=== PATIENT | male | born 1960 | race Two or more races ===

== ENCOUNTER 2016-12-31 00:43 | Emergency (ER) | payer MEDICAID | END 2016-12-31 03:09 | disposition home or self-care (01) | DX: J01.90 Acute sinusitis, unspecified (principal); E11.65 Type 2 diabetes mellitus with hyperglycemia; Z79.4 Long term (current) use of insulin; F17.200 Nicotine dependence, unspecified, uncomplicated; Z79.82 Long term (current) use of aspirin ==

== ENCOUNTER 2017-06-13 10:58 | Outpatient (CLI) | payer MEDICAID ==
[2017-06-13 19:28] LABS: BASOPHILS % (AUTO) 0.1 %; HCT - HEMATOCRIT 48.2 % (42.0-52.0); HGB - HEMOGLOBIN 16.4 g/dL (14.0-18.0); LYMPHOCYTES % (AUTO) 3.3 %; MEAN CORPUSCULAR HEMOGLOBIN 33.4 pg (27.0-31.0); MEAN CORPUSCULAR HGB CONC 34.1 g/dL (32.0-36.0); MEAN PLATELET VOLUME 11.2 fL (7.4-11.4); NEUTROPHILS % (AUTO) 41.6 %; RED BLOOD COUNT 4.91 10^6/uL (4.70-6.10); RED CELL DISTRIBUTION WIDTH 13.6 % (12.0-15.0); UNCORRECTED WHITE BLOOD COUNT 9.9 x10^3/uL; WHITE BLOOD COUNT 9.9 x10^3/uL (4.8-10.8)
[2017-06-13 19:37] LABS: BAND NEUTROPHILS % (MANUAL) 0 %
[2017-06-13 20:01] LABS: BASOPHILS % (MANUAL) 1 %; EOSINOPHILS % (MANUAL) 1 %; LYMPHOCYTES % (MANUAL) 23 %; NEUTROPHILS % (MANUAL) 67 %; NP AUTO DIFFERENTIAL? YES; NP MAN DIFFERENTIAL? NO; PLATELET ESTIMATE, MANUAL DECREASED (<130,000) (NORMAL); PLATELET MORPHOLOGY NORMAL APPEARANCE (NORMAL); TOTAL CELLS COUNTED 100
[2017-06-13 20:27] LABS: ALBUMIN/GLOBULIN RATIO 1.4 (1.0-2.2); BUN - BLOOD UREA NITROGEN 13 mg/dL (6-20); CALCIUM 9.6 mg/dL (8.5-10.3); CARBON DIOXIDE - CO2 26 mmol/L (21-32); CHLORIDE 101 mmol/L (101-111); CREATININE 0.9 mg/dL (0.6-1.2); GFR - MDRD 87 (>89); GLUCOSE 298 mg/dL (70-100); POTASSIUM 4.4 mmol/L (3.5-5.0); SODIUM 136 mmol/L (135-145); TOTAL PROTEIN 7.1 g/dL (6.7-8.2)
== END 2017-06-13 10:59 | disposition home or self-care (01) ==
LOC: LAB.N 10:58
PROVIDERS: ATTEND Specialist/Technologist Athletic Trainer
DX: L40.50 Arthropathic psoriasis, unspecified (principal); Z91.89 Other specified personal risk factors, not elsewhere classified; L40.9 Psoriasis, unspecified; M79.7 Fibromyalgia; E11.65 Type 2 diabetes mellitus with hyperglycemia; R20.2 Paresthesia of skin
CPT/HCPCS: 36415; 80053; 85025; 85651; 86140

== ENCOUNTER 2017-06-21 08:00 | Outpatient (CLI) | payer MEDICAID | END 2017-06-21 08:01 | disposition home or self-care (01) | LOC: LAB.N 08:00 | PROVIDERS: ATTEND Physician Assistant | DX: N52.9 Male erectile dysfunction, unspecified (principal) | CPT/HCPCS: 36415; 84403 ==

== ENCOUNTER 2017-07-14 09:04 | Outpatient (CLI) | payer MEDICAID ==
--- NOTE | 2017-07-14 12:38 | XRAY Report ---
FOUR-VIEW RIGHT SHOULDER: 07/14/2017 CLINICAL INDICATION: Psoriatic arthritis. FINDINGS: Internal and external rotational views, oblique view, scapular Y view of the right shoulde r were obtained. There are mild degenerative changes of the glenohumeral and acromioclavicular joint s. There is no evidence of acute fracture or dislocation. No radiopaque foreign body is seen in the soft tissues. IMPRESSION: MILD DEGENERATIVE CHANGES. JOB #: [id number] EXT JOB #:[id number]
== END 2017-07-14 09:05 | disposition home or self-care (01) ==
LOC: DI.N 09:04
PROVIDERS: ATTEND Specialist/Technologist Athletic Trainer
DX: M19.011 Primary osteoarthritis, right shoulder (principal)

== ENCOUNTER 2017-07-27 08:00 | Outpatient (CLI) | payer MEDICAID ==
[2017-07-27 19:37] LABS: HEMOGLOBIN A1C 1.63 g/dL
[2017-07-27 19:43] LABS: ALBUMIN/GLOBULIN RATIO 1.7 (1.0-2.2); BILIRUBIN,TOTAL 1.2 mg/dL (0.2-1.0); BUN - BLOOD UREA NITROGEN 13 mg/dL (6-20); CARBON DIOXIDE - CO2 28 mmol/L (21-32); CHLORIDE 103 mmol/L (101-111); CHOL/HDL RATIO 7.1 (<5.0); CHOLESTEROL 268 mg/dL; CREATININE 0.9 mg/dL (0.6-1.2); GFR - MDRD 87 (>89); GLUCOSE 298 mg/dL (70-100); HDL CHOLESTEROL 38 mg/dL; LDL/HDL RATIO 4.5 (<3.6); POTASSIUM 4.5 mmol/L (3.5-5.0); SODIUM 139 mmol/L (135-145); TOTAL PROTEIN 7.5 g/dL (6.7-8.2); TRIGLYCERIDES 297 mg/dL; VLDL CHOLESTEROL 59 mg/dL
== END 2017-07-27 08:01 | disposition home or self-care (01) ==
LOC: LAB.N 08:00
PROVIDERS: ATTEND Family Medicine
DX: Z79.4 Long term (current) use of insulin (principal); E11.65 Type 2 diabetes mellitus with hyperglycemia; R07.9 Chest pain, unspecified; E78.5 Hyperlipidemia, unspecified
CPT/HCPCS: 36415; 80053; 80061; 82043; 83036; 84443

== ENCOUNTER 2018-01-12 08:00 | Outpatient (CLI) | payer MEDICAID ==
[2018-01-12 18:40] LABS: BASOPHILS # (AUTO) 0.1 10^3/uL (0.0-0.1); EOSINOPHILS # (AUTO) 0.3 10^3/uL (0.0-0.7); EOSINOPHILS % (AUTO) 3.5 %; HGB - HEMOGLOBIN 16.4 g/dL (14.0-18.0); LYMPHOCYTES # (AUTO) 2.6 10^3/uL (1.5-3.5); LYMPHOCYTES % (AUTO) 28.6 %; MEAN CORPUSCULAR HGB CONC 33.4 g/dL (32.0-36.0); MEAN CORPUSCULAR VOLUME 95.7 fL (80.0-94.0); MEAN PLATELET VOLUME 10.6 fL (7.4-11.4); MONOCYTES # (AUTO) 0.8 10^3/uL (0.0-1.0); MONOCYTES % (AUTO) 8.5 %; NEUTROPHILS # (AUTO) 5.3 10^3/uL (1.5-6.6); NEUTROPHILS % (AUTO) 58.4 %; PLT - PLATELET COUNT 156 10^3/uL (130-450); RED BLOOD COUNT 5.13 10^6/uL (4.70-6.10); RED CELL DISTRIBUTION WIDTH 13.4 % (12.0-15.0); WHITE BLOOD COUNT 9.1 x10^3/uL (4.8-10.8)
[2018-01-12 19:01] LABS: ALBUMIN 4.5 g/dL (3.2-5.5); ALBUMIN/GLOBULIN RATIO 1.6 (1.0-2.2); ALKALINE PHOSPHATASE 108 IU/L (42-121); ALT ALANINE AMINOTRANSFERASE 16 IU/L (10-60); AST ASPARTATE AMINOTRANSFERASE 15 IU/L (10-42); BILIRUBIN,TOTAL 0.5 mg/dL (0.2-1.0); BUN - BLOOD UREA NITROGEN 13 mg/dL (6-20); CALCIUM 9.4 mg/dL (8.5-10.3); CARBON DIOXIDE - CO2 26 mmol/L (21-32); CHLORIDE 100 mmol/L (101-111); CREATININE 0.8 mg/dL (0.6-1.2); GFR - MDRD 99 (>89); GLUCOSE 370 mg/dL (70-100); SODIUM 135 mmol/L (135-145); TOTAL PROTEIN 7.3 g/dL (6.7-8.2)
[2018-01-12 19:35] LABS: CRP - C-REACTIVE PROTEIN < 1.0 mg/dL (0-1.0)
== END 2018-01-12 23:59 | disposition home or self-care (01) ==
LOC: LAB.N 08:00
PROVIDERS: ATTEND Specialist/Technologist Athletic Trainer
DX: L40.50 Arthropathic psoriasis, unspecified (principal)
CPT/HCPCS: 36415; 80053; 85025; 85651; 86140

== ENCOUNTER 2018-01-12 13:41 | Outpatient (CLI) | payer MEDICAID ==
--- NOTE | 2018-01-12 18:30 | XRAY Report ---
THREE VIEW SINUSES: 01/12/2018 CLINICAL INDICATION: Chronic sinusitis. FINDINGS: AP, [place], lateral views of the paranasal sinuses are compared to images of the sinuses on head CT of 12/31/2016. There is an air fluid level in the left maxillary sinus, similar to previous. Patchy ethmoid opacification is present. The frontal sinuses and sphenoid sinus appear unremarkable. The nasal septum is midline. IMPRESSION: ACUTE ON CHRONIC SINUS DISEASE, SIMILAR TO PREVIOUS CT. TD: 01/12/2018 18:29
== END 2018-01-12 13:42 | disposition home or self-care (01) ==
LOC: DI.N 13:41
PROVIDERS: ATTEND Physician Assistant Medical
DX: J01.90 Acute sinusitis, unspecified (principal); J32.9 Chronic sinusitis, unspecified; L40.50 Arthropathic psoriasis, unspecified
CPT/HCPCS: 36415; 70220; 80053; 85025; 85651; 86140

== ENCOUNTER 2018-04-04 08:00 | Outpatient (CLI) | payer MEDICAID ==
[2018-04-04 13:34] LABS: BASOPHILS # (AUTO) 0.1 10^3/uL (0.0-0.1); BASOPHILS % (AUTO) 0.7 %; EOSINOPHILS # (AUTO) 0.2 10^3/uL (0.0-0.7); EOSINOPHILS % (AUTO) 2.1 %; HGB - HEMOGLOBIN 15.8 g/dL (14.0-18.0); LYMPHOCYTES # (AUTO) 2.4 10^3/uL (1.5-3.5); LYMPHOCYTES % (AUTO) 21.9 %; MEAN CORPUSCULAR HEMOGLOBIN 33.1 pg (27.0-31.0); MEAN CORPUSCULAR HGB CONC 35.3 g/dL (32.0-36.0); MEAN CORPUSCULAR VOLUME 93.8 fL (80.0-94.0); MEAN PLATELET VOLUME 10.8 fL (7.4-11.4); MONOCYTES # (AUTO) 0.8 10^3/uL (0.0-1.0); MONOCYTES % (AUTO) 7.6 %; NEUTROPHILS # (AUTO) 7.4 10^3/uL (1.5-6.6); NEUTROPHILS % (AUTO) 67.7 %; PLT - PLATELET COUNT 136 10^3/uL (130-450); RED BLOOD COUNT 4.78 10^6/uL (4.70-6.10); RED CELL DISTRIBUTION WIDTH 13.2 % (12.0-15.0)
[2018-04-04 13:50] LABS: HB2 TOTAL 17.8 g/dL; HEMOGLOBIN A1C 1.4 g/dL; HEMOGLOBIN A1C % 9.3 % (4.6-6.2)
[2018-04-04 13:56] LABS: ALBUMIN 4.1 g/dL (3.2-5.5); ALBUMIN/GLOBULIN RATIO 1.4 (1.0-2.2); ALKALINE PHOSPHATASE 99 IU/L (42-121); ALT ALANINE AMINOTRANSFERASE 18 IU/L (10-60); AST ASPARTATE AMINOTRANSFERASE 16 IU/L (10-42); BILIRUBIN,TOTAL 0.9 mg/dL (0.2-1.0); BUN - BLOOD UREA NITROGEN 16 mg/dL (6-20); CALCIUM 9.1 mg/dL (8.5-10.3); CARBON DIOXIDE - CO2 24 mmol/L (21-32); CHLORIDE 101 mmol/L (101-111); CHOLESTEROL 297 mg/dL; CREATININE 0.7 mg/dL (0.6-1.2); GFR - MDRD 116 (>89); GLUCOSE 350 mg/dL (70-100); HDL CHOLESTEROL 33 mg/dL; SODIUM 133 mmol/L (135-145); TOTAL PROTEIN 7.1 g/dL (6.7-8.2)
[2018-04-04 14:18] LABS: LDL CHOLESTEROL,DIRECT 146 mg/dL; LDLD/HDL RATIO 4.4 (<3.6)
== END 2018-04-04 08:01 | disposition home or self-care (01) ==
LOC: LAB.N 08:00
PROVIDERS: ATTEND Nurse Practitioner
DX: E11.65 Type 2 diabetes mellitus with hyperglycemia (principal); Z79.4 Long term (current) use of insulin; E78.2 Mixed hyperlipidemia; E55.9 Vitamin D deficiency, unspecified; Z12.5 Encounter for screening for malignant neoplasm of prostate
CPT/HCPCS: 36415; 80053; 80061; 82043; 82306; 83036; 83721; 84153; 84443; 85025

== ENCOUNTER 2018-04-04 08:00 | Outpatient (CLI) | payer MEDICAID | END 2018-04-04 08:01 | disposition home or self-care (01) | LOC: LAB.R 08:00 | PROVIDERS: ATTEND Nurse Practitioner | DX: E11.65 Type 2 diabetes mellitus with hyperglycemia (principal); Z79.4 Long term (current) use of insulin; E78.2 Mixed hyperlipidemia | CPT/HCPCS: 82043 ==

== ENCOUNTER 2018-11-24 08:00 | Outpatient (CLI) | payer MEDICAID | END 2018-11-24 23:59 | disposition home or self-care (01) | LOC: LAB.R 08:00 | PROVIDERS: ATTEND Nurse Practitioner | DX: R19.4 Change in bowel habit (principal) | CPT/HCPCS: 82274 ==

== ENCOUNTER 2019-03-27 08:00 | Outpatient (CLI) | payer MEDICAID ==
[2019-03-27 19:02] LABS: BASOPHILS # (AUTO) 0.1 10^3/uL (0.0-0.1); BASOPHILS % (AUTO) 0.9 %; EOSINOPHILS # (AUTO) 0.3 10^3/uL (0.0-0.7); EOSINOPHILS % (AUTO) 2.6 %; HGB - HEMOGLOBIN 16.8 g/dL (14.0-18.0); LYMPHOCYTES # (AUTO) 2.2 10^3/uL (1.5-3.5); LYMPHOCYTES % (AUTO) 20.6 %; MEAN CORPUSCULAR HEMOGLOBIN 32.1 pg (27.0-31.0); MEAN CORPUSCULAR HGB CONC 33.5 g/dL (32.0-36.0); MEAN CORPUSCULAR VOLUME 95.7 fL (80.0-94.0); MEAN PLATELET VOLUME 10.9 fL (7.4-11.4); MONOCYTES # (AUTO) 0.9 10^3/uL (0.0-1.0); MONOCYTES % (AUTO) 8.6 %; NEUTROPHILS # (AUTO) 7.1 10^3/uL (1.5-6.6); NEUTROPHILS % (AUTO) 67.3 %; PLT - PLATELET COUNT 158 10^3/uL (130-450); RED BLOOD COUNT 5.22 10^6/uL (4.70-6.10); RED CELL DISTRIBUTION WIDTH 13.5 % (12.0-15.0); WHITE BLOOD COUNT 10.6 x10^3/uL (4.8-10.8)
[2019-03-27 19:16] LABS: ALBUMIN 4.2 g/dL (3.2-5.5); ALBUMIN/GLOBULIN RATIO 1.4 (1.0-2.2); ALKALINE PHOSPHATASE 109 IU/L (42-121); ALT ALANINE AMINOTRANSFERASE 13 IU/L (10-60); AST ASPARTATE AMINOTRANSFERASE 12 IU/L (10-42); BUN - BLOOD UREA NITROGEN 16 mg/dL (6-20); CALCIUM 9.7 mg/dL (8.5-10.3); CARBON DIOXIDE - CO2 28 mmol/L (21-32); CHLORIDE 100 mmol/L (101-111); CHOL/HDL RATIO 8.7 (<5.0); CHOLESTEROL 288 mg/dL; CREATININE 0.9 mg/dL (0.6-1.2); GFR - MDRD 86 (>89); GLUCOSE 282 mg/dL (70-100); HDL CHOLESTEROL 33 mg/dL; LDL CHOLESTEROL,CALCULATED 182 mg/dL; LDL/HDL RATIO 5.5 (<3.6); SODIUM 138 mmol/L (135-145); TOTAL PROTEIN 7.2 g/dL (6.7-8.2); VLDL CHOLESTEROL 73 mg/dL
[2019-03-27 19:31] LABS: PSA FREE 0.226 ng/mL (0.16-2.81)
[2019-03-27 19:33] LABS: PSA TOTAL 0.902 ng/mL (0.000-2.000)
[2019-03-27 19:38] LABS: HB2 TOTAL 18.6 g/dL; HEMOGLOBIN A1C 1.63 g/dL; HEMOGLOBIN A1C % 10.2 % (4.6-6.2)
== END 2019-03-27 23:59 | disposition home or self-care (01) ==
LOC: LAB.N 08:00
PROVIDERS: ATTEND Nurse Practitioner Gerontology
DX: N40.0 Benign prostatic hyperplasia without lower urinary tract symptoms (principal); E11.40 Type 2 diabetes mellitus with diabetic neuropathy, unspecified; E11.65 Type 2 diabetes mellitus with hyperglycemia
CPT/HCPCS: 36415; 80053; 80061; 82043; 83036; 83721; 84153; 84154; 84443; 85025

== ENCOUNTER 2019-05-23 08:00 | Outpatient (CLI) | payer MEDICAID ==
[2019-05-23 19:03] LABS: BASOPHILS # (AUTO) 0.1 10^3/uL (0.0-0.1); BASOPHILS % (AUTO) 1.1 %; EOSINOPHILS # (AUTO) 0.2 10^3/uL (0.0-0.7); HGB - HEMOGLOBIN 16.8 g/dL (14.0-18.0); LYMPHOCYTES # (AUTO) 2.4 10^3/uL (1.5-3.5); LYMPHOCYTES % (AUTO) 28.1 %; MEAN CORPUSCULAR HEMOGLOBIN 31.6 pg (27.0-31.0); MEAN CORPUSCULAR HGB CONC 33.5 g/dL (32.0-36.0); MEAN CORPUSCULAR VOLUME 94.4 fL (80.0-94.0); MEAN PLATELET VOLUME 11.7 fL (7.4-11.4); MONOCYTES # (AUTO) 0.4 10^3/uL (0.0-1.0); MONOCYTES % (AUTO) 4.9 %; NEUTROPHILS # (AUTO) 5.3 10^3/uL (1.5-6.6); NEUTROPHILS % (AUTO) 63.3 %; PLT - PLATELET COUNT 187 10^3/uL (130-450); RED BLOOD COUNT 5.31 10^6/uL (4.70-6.10); RED CELL DISTRIBUTION WIDTH 12.9 % (12.0-15.0); WHITE BLOOD COUNT 8.4 x10^3/uL (4.8-10.8)
[2019-05-23 19:40] LABS: ALBUMIN 4.1 g/dL (3.2-5.5); ALBUMIN/GLOBULIN RATIO 1.3 (1.0-2.2); ALKALINE PHOSPHATASE 92 IU/L (42-121); ALT ALANINE AMINOTRANSFERASE 17 IU/L (10-60); AST ASPARTATE AMINOTRANSFERASE 13 IU/L (10-42); BUN - BLOOD UREA NITROGEN 12 mg/dL (6-20); CALCIUM 9.4 mg/dL (8.5-10.3); CARBON DIOXIDE - CO2 27 mmol/L (21-32); CHLORIDE 102 mmol/L (101-111); CREATININE 0.8 mg/dL (0.6-1.2); GFR - MDRD 99 (>89); GLUCOSE 220 mg/dL (70-100); SODIUM 140 mmol/L (135-145); TOTAL PROTEIN 7.3 g/dL (6.7-8.2)
[2019-05-23 19:41] LABS: CRP - C-REACTIVE PROTEIN < 1.0 mg/dL (0-1.0)
== END 2019-05-23 23:59 | disposition home or self-care (01) ==
LOC: LAB.N 08:00
PROVIDERS: ATTEND Physician Assistant Medical
DX: L40.50 Arthropathic psoriasis, unspecified (principal)
CPT/HCPCS: 36415; 80053; 85025; 85651; 86140

== ENCOUNTER 2019-07-20 09:00 | Emergency (ER) | payer MEDICAID ==
[2019-07-20] MEDS ORDERED: LIDOCAINE VISCOUS 2% 15 ML UDC MM STA (09:17)
[2019-07-20] MEDS ORDERED: MAG HYDROX/AL HYDROX/SIMETH 30 ML UDC PO STA (09:17)
--- NOTE | 2019-07-20 09:17 | ED Physician Documentation ---
PD HPI CHEST PAIN - Stated complaint Stated Complaint: CHEST PX - Chief complaint Chief Complaint: Cardiac - History obtained from History obtained from: Patient - History of Present Illness Timing - onset: How many days ago (3) Timing - duration: Days (3) Timing - details: Still present Pain level now: 7 Quality: Pain Location: Substernal Worsened by: Inspiration Associated symptoms: No: Shortness of air, Diaphoresis, Nausea, Vomiting - Treatment prior to arrival Treatment prior to arrival: 4 baby aspirin - Additional information Additional information: The patient is a 58-year-old insulin-dependent diabetic male who presents with substernal chest pain that started 3 days ago and has continued steadily since then. He rates it at 7 out of 10 in severity, and reports that it is worse with inspiration, with swallowing, or with movement. He denies associated nausea, vomiting, shortness of breath, or diaphoresis. He has taken aspirin without relief. He reports productive cough, but denies fever. He reports history of similar pain 3 years ago and had negative cardiac work-up at that time. In addition to insulin dependent diabetes he smokes cigarettes. Review of Systems Constitutional: denies: Fever Ears: denies: Tinnitus/ringing Nose: denies: Congestion Throat: denies: Sore throat Cardiac: reports: Chest pain / pressure. denies: Palpitations Respiratory: reports: Cough. denies: Dyspnea GI: denies: Abdominal Pain, Nausea, Vomiting : denies: Dysuria Skin: denies: Rash Musculoskeletal: reports: Back pain (chronically). denies: Extremity swelling Neurologic: denies: Focal weakness, Numbness, Headache PD PAST MEDICAL HISTORY - Past Medical History Endocrine/Autoimmune: Type 2 diabetes, Other GI: GERD Psych: Anxiety Musculoskeletal: Osteoarthritis, Chronic back pain Derm: Psoriasis - Past Surgical History Past Surgical History: Yes - Present Medications Home Medications: Ambulatory Orders Medication Instructions Recorded Confirmed Gabapentin 100 mg PO TID 09/09/16 12/31/16 Insulin Detemir [Levemir] 25 unit SUBQ QPM 09/09/16 12/31/16 Insulin Lispro [Humalog Kwikpen 5 units SUBQ TIDWM 09/09/16 12/31/16 U-100] Methotrexate 15 mg PO Q7D 09/09/16 12/31/16 Aspirin [Aspir-Low] 81 mg PO DAILYWM #30 tablet. 09/10/16 12/31/16 metFORMIN [Glucophage] 1,000 mg PO BIDWM #60 tablet 09/10/16 12/31/16 Secukinumab [Cosentyx Pen] mg SQ 07/20/19 - Allergies Allergies/Adverse Reactions: Allergies Allergy/AdvReac Type Severity Reaction Status Date / Time No Known Drug Allergies Allergy Verified 07/20/19 09:06 - Social History Does the pt smoke?: Yes Smoking Status: Current every day smoker Does the pt drink ETOH?: No Does the pt have substance abuse?: No - Immunizations Immunizations are current?: No Immunizations: TDAP >10years/unknown - POLST Patient has POLST: No PD ED PE NORMAL - Vitals Vital signs reviewed: Yes (hypertensive) - General General: Alert and oriented X 3, Well developed/nourished - HEENT HEENT: Atraumatic, Pharynx benign - Neck Neck: No adenopathy, No JVD - Cardiac Cardiac: RRR - Respiratory Respiratory: No respiratory distress, Clear bilaterally - Abdomen Abdomen: Soft, Non tender - Back Back: No CVA TTP - Derm Derm: No rash - Extremities Extremities: No edema, No calf tenderness / cord - Neuro Neuro: Alert and oriented X 3, No motor deficit, Normal speech Results - Vitals Vitals: Vital Signs - 24 hr 07/20/19 07/20/19 07/20/19 09:04 09:33 09:46 Temperature 36.4 C L Heart Rate 104 H 102 H 104 H Respiratory 18 20 14 Rate Blood Pressure 143/100 H 112/85 H 87/72 L O2 Saturation 97 96 94 Oxygen O2 Source Room air - EKG (time done) 09:05 Rate: Rate (enter#) (101) Rhythm: Sinus tachycardia Moffit: Anterior hemiblock Intervals: Normal LA Ischemia: ST elevation c/w ischemia (in precordial leads V1 and V2, with TWI in aVL.), T wave inversion (in aVL.) Compare to prior EKG: Changed from prior EKG (ST elevation and TWI are new since prior tracing of 09/09/2016.) Computer interpretation: Agree with computer - Labs Labs: Laboratory Tests 07/20/19 07/20/19 07/20/19 09:18 09:18 09:18 WBC 15.7 H RBC 5.29 Hgb 17.0 Hct 48.4 MCV 91.5 MCH 32.1 H MCHC 35.1 RDW 12.3 Plt Count 170 MPV 11.2 Neut # (Auto) 11.9 H Lymph # (Auto) 2.0 Jennings # (Auto) 1.5 H Eos # (Auto) 0.2 Baso # (Auto) 0.1 Absolute Nucleated RBC 0.00 Nucleated RBC % 0.0 Sodium 138 Potassium 4.1 Chloride 100 L Carbon Dioxide 27 Anion Gap 11.0 BUN 12 Creatinine 0.9 Estimated GFR (MDRD) 86 L Glucose 212 H Calcium 9.3 Total Bilirubin 1.3 H AST 19 ALT 17 Alkaline Phosphatase 102 Troponin I High Sens 1382.0 H* Total Protein 7.6 Albumin 4.1 Globulin 3.5 Albumin/Globulin Ratio 1.2 Lipase 21 L - Rads (name of study) 1-view CXR Radiology: Prelim report reviewed, EMP read contemporaneously, See rad report (Low lung volumes, otherwise normal portable chest.) PD MEDICAL DECISION MAKING - ED course Complexity details: reviewed old records, reviewed results, re-evaluated patient, considered differential, d/w patient, d/w tax credit leasing consultant ED course: The patient's presentation is significant for ST elevation ND, with ST elevations in precordial leads V1 and V2, with T wave inversion in aVL, and an elevated high-sensitivity troponin of 1382. When compared to prior EKG from September 2016, the ST elevation and T wave inversion are new. Treatment in the emergency department included administration of nitroglycerin sublingually. With one sublingual nitroglycerin his blood pressure dropped to 86 systolic. Normal saline 250 mL was administered IV, and his subsequent blood pressure was 119/74. Morphine 4 mg was administered IV, and heparin bolus and infusion was administered. I discussed his condition with Dr. Peacock at [facility], and he accepts the patient in transfer. Transfer forms were completed. Departure - Departure Disposition: 02 Transfer Acute Care Hosp Clinical Impression: IDDM (insulin dependent diabetes mellitus) STEMI (ST elevation myocardial infarction) Qualifiers: Involved coronary artery: unspecified coronary artery Qualified Code(s): I21.3 - ST elevation (STEMI) myocardial infarction of unspecified site Condition: Fair
[2019-07-20 09:23] LABS: BASOPHILS # (AUTO) 0.1 10^3/uL (0.0-0.1); BASOPHILS % (AUTO) 0.6 %; EOSINOPHILS # (AUTO) 0.2 10^3/uL (0.0-0.7); LYMPHOCYTES % (AUTO) 12.6 %; MEAN CORPUSCULAR HEMOGLOBIN 32.1 pg (27.0-31.0); MEAN CORPUSCULAR HGB CONC 35.1 g/dL (32.0-36.0); MEAN CORPUSCULAR VOLUME 91.5 fL (80.0-94.0); MEAN PLATELET VOLUME 11.2 fL (7.4-11.4); MONOCYTES # (AUTO) 1.5 10^3/uL (0.0-1.0); MONOCYTES % (AUTO) 9.3 %; NEUTROPHILS # (AUTO) 11.9 10^3/uL (1.5-6.6); NEUTROPHILS % (AUTO) 75.9 %; PLT - PLATELET COUNT 170 10^3/uL (130-450); RED BLOOD COUNT 5.29 10^6/uL (4.70-6.10); RED CELL DISTRIBUTION WIDTH 12.3 % (12.0-15.0); WHITE BLOOD COUNT 15.7 x10^3/uL (4.8-10.8)
[2019-07-20] MEDS ORDERED: NITROGLYCERIN SL 0.4 MG TABLET SL STA (09:28)
[2019-07-20 09:32] LABS: ALBUMIN 4.1 g/dL (3.2-5.5); ALBUMIN/GLOBULIN RATIO 1.2 (1.0-2.2); BILIRUBIN,TOTAL 1.3 mg/dL (0.2-1.0); CALCIUM 9.3 mg/dL (8.5-10.3); CREATININE 0.9 mg/dL (0.6-1.2); TOTAL PROTEIN 7.6 g/dL (6.7-8.2)
--- NOTE | 2019-07-20 09:41 | XRAY Report ---
Reason: chest pain Procedure Date: 07/20/2019 Accession Number: [id number] / [id number] Procedure: XR - Chest 1 View X-Ray CPT Code: 61777 FULL RESULT: EXAM: CHEST RADIOGRAPHY EXAM DATE: 07/20/2019 09:28 AM. CLINICAL HISTORY: Chest pain. COMPARISON: SHOULDER 3 VIEW RT 07/14/2017 9:20 AM. TECHNIQUE: 1 view. FINDINGS: Lungs/Pleura: Low lung volumes. No effusions or pneumothoraces. No consolidations or nodules. Mediastinum: Within exam limitations, the cardiomediastinal contour is normal. Other: None. IMPRESSION: Low lung volumes otherwise normal portable chest. RADIA
[2019-07-20] MEDS ORDERED: SODIUM CHLORIDE 0.9% 250 ML IV ONE (09:43)
[2019-07-20] MEDS ORDERED: MORPHINE 2 MG/ML CARPUJECT IVP STA (09:48)
[2019-07-20] MEDS ORDERED: HEPARIN 25000UNITS/500ML (D5W) 25,000 UNIT/500 ML BAG IV STA (09:48)
[2019-07-20] MEDS ORDERED: HEPARIN 5,000 UNIT/ML VIAL ONE (10:06)
[2019-07-20 10:09] VITALS: BP 120/78
== END 2019-07-20 10:20 | disposition short-term general hospital (02) ==
LOC: ED 09:00
DX: I21.3 ST elevation (STEMI) myocardial infarction of unspecified site (principal); I44.4 Left anterior fascicular block; F17.210 Nicotine dependence, cigarettes, uncomplicated; E11.9 Type 2 diabetes mellitus without complications; Z79.4 Long term (current) use of insulin; Z79.82 Long term (current) use of aspirin
CPT/HCPCS: 36415; 71045; 80053; 83690; 84484; 85025; 93005; 96365; 96375; 99285; A9270

== ENCOUNTER 2019-07-20 10:18 | Outpatient (CLI) | payer MEDICAID | END 2019-07-20 10:19 | disposition short-term general hospital (02) | LOC: EMS 10:18 | PROVIDERS: ATTEND Surgery | DX: I21.3 ST elevation (STEMI) myocardial infarction of unspecified site (principal) | CPT/HCPCS: A0425; A0426; A0999 ==

== ENCOUNTER 2020-12-04 15:56 | Outpatient (CLI) | payer MEDICAID ==
[2020-12-04 17:59] LABS: BASOPHILS # (AUTO) 0.1 10^3/uL (0.0-0.1); BASOPHILS % (AUTO) 0.7 %; EOSINOPHILS # (AUTO) 0.4 10^3/uL (0.0-0.7); EOSINOPHILS % (AUTO) 3.2 %; LYMPHOCYTES # (AUTO) 3.2 10^3/uL (1.5-3.5); LYMPHOCYTES % (AUTO) 29.4 %; MEAN CORPUSCULAR HEMOGLOBIN 32.1 pg (27.0-31.0); MEAN CORPUSCULAR HGB CONC 34.2 g/dL (32.0-36.0); MEAN PLATELET VOLUME 10.8 fL (7.4-11.4); MONOCYTES # (AUTO) 0.9 10^3/uL (0.0-1.0); MONOCYTES % (AUTO) 8.6 %; NEUTROPHILS # (AUTO) 6.2 10^3/uL (1.5-6.6); NEUTROPHILS % (AUTO) 57.4 %; PLT - PLATELET COUNT 224 10^3/uL (130-450); RED BLOOD COUNT 5.29 10^6/uL (4.70-6.10); WHITE BLOOD COUNT 10.8 x10^3/uL (4.8-10.8)
[2020-12-04 18:14] LABS: ALBUMIN 4.2 g/dL (3.2-5.5); ALBUMIN/GLOBULIN RATIO 1.3 (1.0-2.2); ALKALINE PHOSPHATASE 97 IU/L (42-121); ALT ALANINE AMINOTRANSFERASE 19 IU/L (10-60); AST ASPARTATE AMINOTRANSFERASE 14 IU/L (10-42); BILIRUBIN,TOTAL 0.9 mg/dL (0.2-1.0); BUN - BLOOD UREA NITROGEN 13 mg/dL (6-20); CALCIUM 9.6 mg/dL (8.5-10.3); CARBON DIOXIDE - CO2 28 mmol/L (21-32); CHLORIDE 101 mmol/L (101-111); CHOLESTEROL 280 mg/dL; CREATININE 0.9 mg/dL (0.6-1.2); GLUCOSE 126 mg/dL (70-100); HDL CHOLESTEROL 40 mg/dL; LDL CHOLESTEROL,CALCULATED 198 mg/dL; TOTAL PROTEIN 7.5 g/dL (6.7-8.2); VLDL CHOLESTEROL 42 mg/dL
[2020-12-04 18:24] LABS: CREATININE,URINE 18.1 mg/dL; MICROALBUMIN,URINE < 0.2 mg/dL (0-300.0)
[2020-12-04 18:48] LABS: HEMOGLOBIN A1c% 10.4 % (4.27-6.07)
== END 2020-12-04 23:59 | disposition home or self-care (01) ==
LOC: LAB.WCP 15:56
PROVIDERS: ATTEND Internal Medicine
DX: E11.65 Type 2 diabetes mellitus with hyperglycemia (principal); E55.9 Vitamin D deficiency, unspecified; Z12.11 Encounter for screening for malignant neoplasm of colon; Z80.42 Family history of malignant neoplasm of prostate
CPT/HCPCS: 36415; 80053; 80061; 82043; 82274; 82306; 82570; 83036; 83721; 84153; 84443; 85025

== ENCOUNTER 2021-01-22 08:00 | Outpatient (CLI) | payer MEDICAID ==
[2021-01-22 11:32] LABS: BASOPHILS # (AUTO) 0.1 10^3/uL (0.0-0.1); BASOPHILS % (AUTO) 0.9 %; EOSINOPHILS # (AUTO) 0.3 10^3/uL (0.0-0.7); EOSINOPHILS % (AUTO) 2.2 %; HCT - HEMATOCRIT 49.3 % (42.0-52.0); HGB - HEMOGLOBIN 16.7 g/dL (14.0-18.0); LYMPHOCYTES # (AUTO) 4.1 10^3/uL (1.5-3.5); LYMPHOCYTES % (AUTO) 27.7 %; MEAN CORPUSCULAR HEMOGLOBIN 31.6 pg (27.0-31.0); MEAN CORPUSCULAR HGB CONC 33.9 g/dL (32.0-36.0); MEAN CORPUSCULAR VOLUME 93.4 fL (80.0-94.0); MEAN PLATELET VOLUME 11.5 fL (7.4-11.4); NEUTROPHILS # (AUTO) 9.1 10^3/uL (1.5-6.6); NEUTROPHILS % (AUTO) 61.6 %; PLT - PLATELET COUNT 221 10^3/uL (130-450); RED BLOOD COUNT 5.28 10^6/uL (4.70-6.10); RED CELL DISTRIBUTION WIDTH 12.7 % (12.0-15.0); WHITE BLOOD COUNT 14.7 x10^3/uL (4.8-10.8)
[2021-01-22 12:24] LABS: BILIRUBIN,URINE NEGATIVE (NEGATIVE); GLUCOSE, URINE (UA) NEGATIVE (NEGATIVE); KETONES,URINE (UA) NEGATIVE (NEGATIVE); LEUKOCYTE ESTERASE, URINE NEGATIVE (NEGATIVE); NITRITE,URINE NEGATIVE (NEGATIVE); OCCULT BLOOD,URINE NEGATIVE (NEGATIVE); PH,URINE 5.5 PH (5.0-7.5); PROTEIN,URINE NEGATIVE (NEGATIVE); UROBILINOGEN,URINE 0.2 (NORMAL) E.U./dL (NORMAL)
[2021-01-22 12:27] LABS: CLARITY,URINE CLEAR (CLEAR)
[2021-01-22 12:36] LABS: ALBUMIN 4.1 g/dL (3.2-5.5); ALBUMIN/GLOBULIN RATIO 1.1 (1.0-2.2); POTASSIUM 3.9 mmol/L (3.5-5.0); TOTAL PROTEIN 7.7 g/dL (6.7-8.2)
== END 2021-01-22 23:59 | disposition home or self-care (01) ==
LOC: LAB.WCP 08:00
PROVIDERS: ATTEND Internal Medicine
DX: R10.84 Generalized abdominal pain (principal)
CPT/HCPCS: 36415; 80053; 81001; 81003; 82150; 83690; 85025; 87086

== ENCOUNTER 2021-01-24 12:14 | Outpatient (CLI) | payer MEDICAID ==
[2021-01-24] MEDS ORDERED: IOPAMIDOL-300 50 ML VIAL ONE (12:35)
[2021-01-24] MEDS ORDERED: IOVERSOL 320 100 ML VIAL IVP ONE ×2 (12:35→13:44)
[2021-01-24] MEDS ORDERED: IOPAMIDOL-300 50 ML VIAL PO ONE (13:44)
--- NOTE | 2021-01-24 15:57 | CT Report ---
PROCEDURE: Abdomen/Pelvis W INDICATIONS: LLQ ABD PAIN CONTRAST: IV CONTRAST: Optiray 320 ml: 100 PO CONTRAST: Isovue 300 ml50 TECHNIQUE: After the administration of oral and intravenous contrast, 5 mm thick sections acquired from the diap hragms to the symphysis. 5 mm thick coronal and sagittal reformats were acquired. For radiation dos e reduction, the following was used: automated exposure control, adjustment of mA and/or kV accordin g to patient size. COMPARISON: None. FINDINGS: Image quality: Excellent. ABDOMEN: Lung bases: Bibasilar atelectasis. No pleural effusion. Heart size is normal. Solid organs: Liver liver is normal in size. Question of hepatic steatosis. Small hypodensity in the left lobe liver measuring 1 cm, (01/25). Gallbladder is unremarkable. Biliary system is non dilated . Pancreas enhances normally. No adrenal nodules. Kidneys demonstrate normal size and enhancement, without hydronephrosis. Peritoneum and bowel: No small bowel obstruction. No significant diverticulosis. No diverticulitis. Q uestion of thickening of the rectum. Normal appendix. No free fluid or air. Nodes and vessels: No retroperitoneal or mesenteric adenopathy by size criteria. Aorta and inferior vena cava are normal in size. Extensive calcified and noncalcified atherosclerotic plaque. Miscellaneous: No ventral hernias. PELVIS: Genitourinary: Bladder is unremarkable. Miscellaneous: Suspect fat-containing left internal hernia. No adenopathy identified. No suspicious m esorectal lymph nodes seen. Bones: No suspicious bony lesions. Bone island in the L5 vertebral body. No vertebral body compress ion fractures. IMPRESSION: 1. No acute inflammatory process is identified. No significant diverticulosis. No diverticulitis. No free fluid. 2. Question of thickening of the rectum. -This could be further evaluated with colonoscopy if not recently performed. 3. No adenopathy. 4. Subtle hypodensity in the left lobe of the liver measuring 1 cm. This is indeterminate. -This can be further evaluated with abdominal ultrasound or liver MRI or CT. Reviewed by: Bridger Cristina MD on 01/24/2021 2:56 PM ZENOBIA Approved by: Bridger Cristina MD on 01/24/2021 2:56 PM ZENOBIA Station ID: [id number]
== END 2021-01-24 12:15 | disposition home or self-care (01) ==
LOC: DI 12:14
PROVIDERS: ATTEND Internal Medicine
DX: R10.32 Left lower quadrant pain (principal)
CPT/HCPCS: 74177; Q9967

== ENCOUNTER 2021-03-06 12:48 | Outpatient (CLI) | payer MEDICAID | END 2021-03-06 12:49 | disposition home or self-care (01) | LOC: COV 12:48 | PROVIDERS: ATTEND Surgery | DX: Z01.812 Encounter for preprocedural laboratory examination (principal); R19.5 Other fecal abnormalities; E11.9 Type 2 diabetes mellitus without complications; I25.2 Old myocardial infarction; Z79.4 Long term (current) use of insulin; Z20.822 Contact with and (suspected) exposure to COVID-19 ==

== ENCOUNTER 2021-03-10 07:21 | Day surgery (SDC) | payer MEDICAID ==
[2021-03-10] MEDS ORDERED: LACTATED RINGERS 1,000 ML IV ONE ×2 (07:58→09:47)
[2021-03-10] MEDS ORDERED: PROPOFOL 200 MG/20 ML VIAL IVP ONE ×2 (08:15)
[2021-03-10] MEDS ORDERED: fentaNYL 100 MCG/2 ML VIAL ONE (08:16)
[2021-03-10] MEDS ORDERED: MIDAZOLAM 2 MG/2 ML VIAL ONE (08:16)
--- NOTE | 2021-03-10 08:20 | ANESTHESIA ---
Pre-Anesthesia VS, & Labs - Diagnosis positive FIT test, hx GA - Procedure colonoscopy, EGD Vital Signs: Temp Pulse Resp BP Pulse Ox 36.2 C L 79 20 130/86 H 98 03/10/21 07:45 03/10/21 07:45 03/10/21 07:45 03/10/21 07:45 03/10/21 07:45 Height: 5 ft 5 in Weight (kg): 79 kg Body Mass Index: 29.0 BMI Classification: Overweight - NPO >8 hours - Lab Results Current Lab Results: Laboratory Tests 03/10/21 07:52: POC Whole Bld Glucose 107 H Lab results reviewed: Yes Home Medications and Allergies Home Medications: Ambulatory Orders Albuterol Sulfate [Proair Hfa Inhaler] 1 - 2 puffs INH Q4H PRN 01/28/21 Cholecalciferol [Vitamin D3] 50 mcg PO DAILY 01/28/21 Clotrimazole/Betamethasone Crm [Lotrisone Cream] 1 applic TOP BID PRN 01/28/21 Crisaborole [Eucrisa] 1 applic TP BID 01/28/21 Exenatide Microspheres [Bydureon Pen] 2 mg SQ OAW 01/28/21 Famotidine [Pepcid] 20 mg PO BID 01/28/21 Fluocinonide 0.05% Cream [Lidex 0.05% Cream] 1 applic TOP BID PRN 01/28/21 Fluticasone [Flonase] 1 sprays SARA BID 01/28/21 Folic Acid 1 mg PO DAILY 01/28/21 Insulin Degludec [Tresiba Flextouch U-200] 90 unit SUBQ DAILY 01/28/21 Isosorbide Dinitrate 30 mg PO DAILY 01/28/21 Metoprolol Succinate [Toprol Xl] 25 mg PO BID 01/28/21 Nitroglycerin [Nitrostat] 0.4 mg SL Q5MIN PRN 01/28/21 Oxycodone HCl 10 mg PO TID PRN 01/28/21 Promethazine [Phenergan] 25 mg PO TID 01/28/21 Simvastatin [Zocor] 40 mg PO QPM 01/28/21 Guselkumab [Tremfya] 100 mg SQ ONCE 03/02/21 Insulin Lispro [Humalog Kwikpen U-100] 9 units SUBQ TIDWM 09/09/16 Methotrexate [Methotrexate Sodium] 20 mg PO Q7D 09/09/16 Albuterol Sulfate [Proair Hfa Inhaler] 1 - 2 puffs INH Q4H PRN 01/28/21 Cholecalciferol [Vitamin D3] 50 mcg PO DAILY 01/28/21 Clotrimazole/Betamethasone Crm [Lotrisone Cream] 1 applic TOP BID PRN 01/28/21 Crisaborole [Eucrisa] 1 applic TP BID 01/28/21 Exenatide Microspheres [Bydureon Pen] 2 mg SQ OAW 01/28/21 Famotidine [Pepcid] 20 mg PO BID 01/28/21 Fluocinonide 0.05% Cream [Lidex 0.05% Cream] 1 applic TOP BID PRN 01/28/21 Fluticasone [Flonase] 1 sprays SARA BID 01/28/21 Folic Acid 1 mg PO DAILY 01/28/21 Insulin Degludec [Tresiba Flextouch U-200] 90 unit SUBQ DAILY 01/28/21 Isosorbide Dinitrate 30 mg PO DAILY 01/28/21 Metoprolol Succinate [Toprol Xl] 25 mg PO BID 01/28/21 Nitroglycerin [Nitrostat] 0.4 mg SL Q5MIN PRN 01/28/21 Oxycodone HCl 10 mg PO TID PRN 01/28/21 Promethazine [Phenergan] 25 mg PO TID 01/28/21 Simvastatin [Zocor] 40 mg PO QPM 01/28/21 Guselkumab [Tremfya] 100 mg SQ ONCE 03/02/21 Allergies/Adverse Reactions: Allergies Allergy/AdvReac Type Severity Reaction Status Date / Time ixekizumab Allergy muscle Verified 01/28/21 09:59 [From Taltz Autoinjector] swelling diphenhydramine AdvReac Anxiety, Verified 01/28/21 09:59 [From Benadryl] twitching Anes History & Medical History - Anesthetic History Anesthesia Complications: reports: No previous complications Family history of Anesthesia Complications: Denies Family history of Malignant Hyperthermia: Denies - Medical History Cardiovascular: reports: Hypertension, High cholesterol, [place] Pulmonary: reports: COPD Gastrointestinal: reports: GERD Urinary: reports: Benign prostate hypertrophy Musculoskeletal: reports: Osteoarthritis, Chronic back pain Endocrine/Autoimmune: reports: Type 2 diabetes, Other Skin: reports: Psoriasis Smoking Status: Current every day smoker - Surgical History General: reports: Colonoscopy, Other Cardiothoracic: reports: Coronary stent Orthopedic: reports: Other Exam General: Alert, Oriented x3, Cooperative Dental: Other (none) Mouth Openin Fingerbreadth Neck Mobility: Normal Mallampati classification: II Thyromental Distance: 4-6 cm Respiratory: Lungs clear, Normal breath sounds, No respiratory distress Cardiovascular: Regular rate Neurological: Normal speech Mental/Cognitive Status: Alert/Oriented X3, Normal for patient Cognitive Status: Within normal limits Plan Anesthesia Type: Total IV Consent for Procedure(s) Verified and Reviewed: Yes Code Status: Attempt Resuscitation ASA classification: 3-Severe systemic disease Is this case an emergency?: No
[2021-03-10] MEDS ORDERED: METOCLOPRAMIDE 10 MG/2 ML VIAL IVP PRN (08:21)
[2021-03-10] MEDS ORDERED: ePHEDrine 50 MG/ML VIAL IVP PRN (08:21)
[2021-03-10] MEDS ORDERED: ONDANSETRON 4 MG/2 ML VIAL IVP PRN (08:21)
[2021-03-10] MEDS ORDERED: MORPHINE 2 MG/ML CARPUJECT IVP PRN (08:21)
[2021-03-10] MEDS ORDERED: fentaNYL 100 MCG/2 ML VIAL IVP PRN (08:21)
[2021-03-10] MEDS ORDERED: ATROPINE ABBOJECT 1 MG/10 ML SYRINGE IVP PRN (08:21)
[2021-03-10] MEDS ORDERED: NALOXONE 0.4 MG/ML VIAL IVP PRN (08:21)
[2021-03-10] MEDS ORDERED: HYDROmorphone 0.5 MG/0.5 ML SYRINGE IVP PRN (08:21)
[2021-03-10] MEDS ORDERED: LACTATED RINGERS 1,000 ML IV SCH (09:00)
--- NOTE | 2021-03-10 09:54 | ANESTHESIA POST OP EVALUATION ---
Anesthesia Post Eval - Post Anesthesia Eval Vitals: Last Vital Signs Temp 36 C L 03/10/21 09:42 Pulse 78 03/10/21 09:45 Resp 18 03/10/21 09:45 BP 75/55 L 03/10/21 09:45 Pulse Ox 97 03/10/21 09:45 CV Function Including HR & BP: Stable Pain Control: Satisfactory Nausea & Vomiting: Negative Mental Status: Baseline Respiratory Status: Airway Patent Hydration Status: Satisfactory Anesthesia Complications: None
[2021-03-10 09:59] VITALS: BP 123/81
== END 2021-03-10 07:22 | disposition home or self-care (01) ==
LOC: SDS 07:21
PROVIDERS: ATTEND Surgery
PROC: 0DB78ZX Excision of Stomach, Pylorus, Via Natural or Artificial Opening Endoscopic, Diagnostic (ICD-10-PCS; principal; 2021-03-10 08:30)
PROC: 0DBL8ZZ Excision of Transverse Colon, Via Natural or Artificial Opening Endoscopic (ICD-10-PCS; 2021-03-10 08:30)
DX: K29.60 Other gastritis without bleeding (principal); K21.00 Gastro-esophageal reflux disease with esophagitis, without bleeding; D12.3 Benign neoplasm of transverse colon; K64.8 Other hemorrhoids; Z87.19 Personal history of other diseases of the digestive system; Z80.0 Family history of malignant neoplasm of digestive organs; I10 Essential (primary) hypertension; E11.9 Type 2 diabetes mellitus without complications; J44.9 Chronic obstructive pulmonary disease, unspecified; E78.00 Pure hypercholesterolemia, unspecified; L40.50 Arthropathic psoriasis, unspecified; F17.210 Nicotine dependence, cigarettes, uncomplicated; N40.0 Benign prostatic hyperplasia without lower urinary tract symptoms; E66.3 Overweight; Z68.29 Body mass index [BMI] 29.0-29.9, adult; I25.2 Old myocardial infarction; Z79.4 Long term (current) use of insulin; Z79.51 Long term (current) use of inhaled steroids; Z79.899 Other long term (current) drug therapy
CPT/HCPCS: 43239; 45380; 88305; J7120

== ENCOUNTER 2021-05-26 09:04 | Outpatient (CLI) | payer MEDICAID ==
[2021-05-26 13:12] LABS: CALCIUM 9.3 mg/dL (8.5-10.3); CREATININE 0.9 mg/dL (0.6-1.2); POTASSIUM 3.8 mmol/L (3.5-5.0)
[2021-05-26 13:47] LABS: ESTIMATED AVERAGE GLUCOSE 166 mg/dL (70-100); HEMOGLOBIN A1c% 7.4 % (4.27-6.07)
== END 2021-05-26 23:59 | disposition home or self-care (01) ==
LOC: LAB.WCP 09:04
PROVIDERS: ATTEND Internal Medicine
DX: E11.40 Type 2 diabetes mellitus with diabetic neuropathy, unspecified (principal)
CPT/HCPCS: 36415; 80048; 83036

== ENCOUNTER 2021-09-16 08:00 | Outpatient (CLI) | payer MEDICAID | END 2021-09-16 23:59 | disposition home or self-care (01) | LOC: LAB.N 08:00 | PROVIDERS: ATTEND Physician Assistant | DX: R07.0 Pain in throat (principal); Z20.822 Contact with and (suspected) exposure to COVID-19 | CPT/HCPCS: 87070 ==

== ENCOUNTER 2021-09-30 14:43 | Outpatient (CLI) | payer MEDICAID ==
--- NOTE | 2021-09-30 15:58 | XRAY Report ---
PROCEDURE: Foot 3 View BILAT INDICATIONS: METATARSALGIA TECHNIQUE: 3 views of the foot were acquired. COMPARISON: None. FINDINGS: No acute fracture. There is chronic appearing erosive and lytic deformities of the phalang es of the lesser toes on both sides. There is also marked bilateral great toe interphalangeal joint d egeneration with erosive appearance. Constellation of findings could reflect patient's given clinical history of psoriatic arthritis although technically nonspecific given advanced arthritic changes. Ma rginal lucencies and erosions seen at the lesser metatarsal heads bilaterally. Bilateral hallux valgus. Bilateral posterior and plantar calcaneal spurring. There is right pes planu s and abnormal Meary's angle. No definite left pes planus IMPRESSION: Diffuse bilateral forefoot/phalangeal erosive and lytic changes presumably reflecting advanced sequel a of psoriatic arthritis although technically nonspecific and recommend clinical correlation. Bilateral hallux valgus Right pes planus Bilateral posterior and plantar calcaneal spurring. Reviewed by: Soren Smith MD on 09/30/2021 3:56 PM PST Approved by: Soren Smith MD on 09/30/2021 3:56 PM PST Station ID: [id number]
== END 2021-09-30 14:44 | disposition home or self-care (01) ==
LOC: DI.N 14:43
PROVIDERS: ATTEND Internal Medicine
DX: L40.50 Arthropathic psoriasis, unspecified (principal); M20.12 Hallux valgus (acquired), left foot; M20.11 Hallux valgus (acquired), right foot; M21.41 Flat foot [pes planus] (acquired), right foot; M77.32 Calcaneal spur, left foot; M77.31 Calcaneal spur, right foot

== ENCOUNTER 2021-10-27 08:00 | Outpatient (CLI) | payer MEDICAID ==
[2021-10-27 18:28] LABS: BASOPHILS # (AUTO) 0.1 10^3/uL (0.0-0.1); BASOPHILS % (AUTO) 0.9 %; EOSINOPHILS # (AUTO) 0.3 10^3/uL (0.0-0.7); EOSINOPHILS % (AUTO) 2.1 %; HCT - HEMATOCRIT 49.7 % (42.0-52.0); HGB - HEMOGLOBIN 16.6 g/dL (14.0-18.0); LYMPHOCYTES # (AUTO) 2.8 10^3/uL (1.5-3.5); LYMPHOCYTES % (AUTO) 21.7 %; MEAN CORPUSCULAR HEMOGLOBIN 31.7 pg (27.0-31.0); MEAN CORPUSCULAR HGB CONC 33.4 g/dL (32.0-36.0); MEAN CORPUSCULAR VOLUME 94.8 fL (80.0-94.0); MONOCYTES # (AUTO) 0.9 10^3/uL (0.0-1.0); MONOCYTES % (AUTO) 6.7 %; NEUTROPHILS # (AUTO) 8.9 10^3/uL (1.5-6.6); NEUTROPHILS % (AUTO) 68.1 %; PLT - PLATELET COUNT 196 10^3/uL (130-450); RED BLOOD COUNT 5.24 10^6/uL (4.70-6.10); RED CELL DISTRIBUTION WIDTH 13.5 % (12.0-15.0)
[2021-10-27 18:48] LABS: ALBUMIN 4.1 g/dL (3.2-5.5); ALBUMIN/GLOBULIN RATIO 1.1 (1.0-2.2); ALKALINE PHOSPHATASE 87 IU/L (42-121); ALT ALANINE AMINOTRANSFERASE 16 IU/L (10-60); AST ASPARTATE AMINOTRANSFERASE 14 IU/L (10-42); BILIRUBIN,TOTAL 1.1 mg/dL (0.2-1.0); BUN - BLOOD UREA NITROGEN 14 mg/dL (6-20); CALCIUM 9.6 mg/dL (8.5-10.3); CARBON DIOXIDE - CO2 27 mmol/L (21-32); CHLORIDE 101 mmol/L (101-111); CHOL/HDL RATIO 7.2 (<5.0); CHOLESTEROL 294 mg/dL; CREATININE 0.9 mg/dL (0.6-1.2); GFR - MDRD 86 (>89); GLUCOSE 147 mg/dL (70-100); HDL CHOLESTEROL 41 mg/dL; LDL CHOLESTEROL,CALCULATED 212 mg/dL; LDL/HDL RATIO 5.2 (<3.6); POTASSIUM 3.9 mmol/L (3.5-5.0); SODIUM 139 mmol/L (135-145); TOTAL PROTEIN 7.7 g/dL (6.7-8.2); TRIGLYCERIDES 206 mg/dL; VLDL CHOLESTEROL 41 mg/dL
[2021-10-27 18:54] LABS: THYROID STIMULATING HORMONE 1.26 uIU/mL (0.34-5.60)
[2021-10-27 19:05] LABS: CREATININE,URINE 80.7 mg/dL; MICROALBUMIN,URINE 0.4 mg/dL (0-300.0)
[2021-10-27 19:54] LABS: ESTIMATED AVERAGE GLUCOSE 183 mg/dL (70-100)
== END 2021-10-27 23:59 | disposition home or self-care (01) ==
LOC: LAB.WCP 08:00
PROVIDERS: ATTEND Internal Medicine
DX: I25.10 Atherosclerotic heart disease of native coronary artery without angina pectoris (principal); E11.42 Type 2 diabetes mellitus with diabetic polyneuropathy; Z12.5 Encounter for screening for malignant neoplasm of prostate; K59.03 Drug induced constipation
CPT/HCPCS: 36415; 80053; 80061; 82043; 82570; 83036; 83721; 84153; 84443; 85025

== ENCOUNTER 2024-01-03 17:08 | Emergency (ER) | payer MEDICAID ==
[2024-01-03 17:28] VITALS: BP 138/89; O2SAT 100
--- NOTE | 2024-01-03 18:13 | ED Physician Documentation ---
PD HPI BACK PAIN - Stated complaint Stated Complaint: LOWER BACK PX - Chief complaint Chief Complaint: Back Pain - History obtained from History obtained from: Patient - Additional information Additional information: Patient is a 63-year-old male presenting for evaluation of low back pain that has been present for the past 5 to 6 days. Patient states that it feels worse when he is laying down but better when he is sitting or standing. He denies any recent injuries or falls. Denies bowel or bladder incontinence. It denies any radiation of the pain to his legs. Denies numbness or tingling. He is tried ice and heat on the area without any significant improvement. He denies fever, chest pain, shortness of air, abdominal pain, vomiting, dysuria or hematuria. Pain is not worse on 1 side versus another. Review of Systems Constitutional: denies: Fever Cardiac: denies: Chest pain / pressure Respiratory: denies: Dyspnea GI: denies: Abdominal Pain : denies: Dysuria Musculoskeletal: reports: Back pain Neurologic: denies: Headache PD PAST MEDICAL HISTORY - Past Medical History Past Medical History: Yes Cardiovascular: Hypertension, High cholesterol, [place] Respiratory: COPD Neuro: Peripheral neuropathy, Tremors Endocrine/Autoimmune: Type 2 diabetes, Other GI: GERD : Benign prostate hypertrophy HEENT: Chronic vision loss, Chronic sinusitis, Other Psych: Anxiety Musculoskeletal: Osteoarthritis, Fibromyalgia, Chronic back pain Derm: Psoriasis - Past Surgical History Past Surgical History: Yes General: Colonoscopy, Other Ortho: Other Cardiovascular: Coronary stent - Present Medications Home Medications: Ambulatory Orders Medication Instructions Recorded Confirmed Insulin Lispro [Humalog Kwikpen 9 units SUBQ TIDWM 09/09/16 01/03/24 U-100] Methotrexate [Methotrexate Sodium] 10 mg PO Q7D 09/09/16 01/03/24 Aspirin [Aspir-Low] 81 mg PO DAILYWM #30 tablet. 09/10/16 01/03/24 metFORMIN [Glucophage] 1,000 mg PO BIDWM #60 tablet 09/10/16 01/03/24 Albuterol Sulfate [Proair Hfa 1 - 2 puffs INH Q4H PRN 01/28/21 01/03/24 Inhaler] Clotrimazole/Betamethasone Crm 1 applic TOP BID PRN 01/28/21 01/03/24 [Lotrisone Cream] Crisaborole [Eucrisa] 1 applic TP BID 01/28/21 01/03/24 Exenatide Microspheres [Bydureon 2 mg SQ OAW 01/28/21 01/03/24 Pen] Famotidine [Pepcid] 20 mg PO BID 01/28/21 01/03/24 Fluocinonide 0.05% Cream [Lidex 1 applic TOP BID PRN 01/28/21 01/03/24 0.05% Cream] Fluticasone [Flonase] 1 sprays SARA BID 01/28/21 01/03/24 Folic Acid 1 mg PO DAILY 01/28/21 01/03/24 Insulin Degludec [Tresiba 90 unit SUBQ DAILY 01/28/21 01/03/24 Flextouch U-200] Isosorbide Dinitrate 30 mg PO DAILY 01/28/21 01/03/24 Metoprolol Succinate [Toprol Xl] 25 mg PO BID 01/28/21 01/03/24 Nitroglycerin [Nitrostat] 0.4 mg SL Q5MIN PRN 01/28/21 01/03/24 Oxycodone HCl 10 mg PO TID PRN 01/28/21 01/03/24 Promethazine [Phenergan] 25 mg PO TID PRN 01/28/21 01/03/24 Guselkumab [Tremfya] 100 mg SQ ONCE 03/02/21 01/03/24 Cyclobenzaprine [Flexeril] 10 mg PO TID PRN #20 tablet 01/03/24 Dulaglutide [Trulicity] 3 mg SQ Q7D 01/03/24 01/03/24 Lidocaine Patch 5% [Lidoderm Patch] 1 patch TOP DAILY PRN #10 patch 01/03/24 Liraglutide [Victoza 2-Ton] 1.8 mg SUBQ DAILY 01/03/24 01/03/24 - Allergies Allergies/Adverse Reactions: Allergies Allergy/AdvReac Type Severity Reaction Status Date / Time ixekizumab Allergy muscle Verified 01/03/24 18:02 [From Taltz Autoinjector] swelling diphenhydramine AdvReac Anxiety, Verified 01/03/24 18:02 [From Benadryl] twitching - Social History Does the pt smoke?: Yes Smoking Status: Current every day smoker Does the pt drink ETOH?: No Does the pt have substance abuse?: No - Immunizations Immunizations are current?: Yes Immunizations: TDAP >10years/unknown - POLST Patient has POLST: No PD ED PE NORMAL - General General: Alert and oriented X 3, No acute distress, Well developed/nourished - HEENT HEENT: Atraumatic, Moist mucous membranes, Pharynx benign - Neck Neck: Supple, no meningeal sign - Cardiac Cardiac: RRR, Strong equal pulses - Respiratory Respiratory: No respiratory distress, Clear bilaterally - Abdomen Abdomen: Normal bowel sounds, Soft, Non tender, Non distended - Back Back: No spinal TTP, Other (Mild bilateral paralumbar tenderness to palpation, no midline tenderness, no step-offs, no erythema) - Derm Derm: Warm and dry - Extremities Extremities: No edema, No calf tenderness / cord, Other (Negative straight leg raise bilaterally) - Neuro Neuro: Alert and oriented X 3, No motor deficit, No sensory deficit, Normal speech Results - Vitals Vitals: Vital Signs - 24 hr 01/03/24 17:23 Temperature 36.2 C L Heart Rate 83 Respiratory 18 Rate Blood Pressure 138/89 H O2 Saturation 100 Oxygen O2 Source Room air PD Medical Decision Making - ED course ED course: Patient is a 63-year-old male presenting for evaluation of atraumatic low back pain. He is ambulatory here. Pain is worse when he is laying down at night and does feel improved if he is sitting or standing.No reported trauma. No red flag signs or symptoms in regards to his back pain. He has only tried some ice or he did not tried any other medications. At this time I do not think an x-ray would be helpful. He also does not have symptoms to warrant an emergent MRI. Discussed trial of lidocaine patches, anti-inflammatories and Flexeril which he is agreeable to. He reports having a follow-up appointment with his PCP next week. No fever. No dysuria, unilateral flank pain, vomiting. Abdominal exam is benign. Patient counseled on concerning symptoms to return for. Departure - Departure Disposition: 01 Home, Self Care Clinical Impression: Low back pain Condition: Stable Instructions: ED Neck Back Pain General Prescriptions: Cyclobenzaprine [Flexeril] 10 mg PO TID PRN #20 tablet PRN Reason: Spasms Lidocaine Patch 5% [Lidoderm Patch] 1 patch TOP DAILY PRN #10 patch PRN Reason: pain Discharge Date/Time: 01/03/24 18:46
[2024-01-03] MEDS: LIDOCAINE PATCH 4% TOP STA (18:27)
== END 2024-01-03 18:46 | disposition home or self-care (01) ==
LOC: ED 17:08
DX: M54.50 Low back pain, unspecified (principal); F17.200 Nicotine dependence, unspecified, uncomplicated
CPT/HCPCS: 99282; 99283; A9270

== ENCOUNTER 2024-01-05 08:00 | Outpatient (CLI) | payer MEDICAID ==
[2024-01-05 20:29] LABS: BASOPHILS # (AUTO) 0.1 10^3/uL (0.0-0.1); BASOPHILS % (AUTO) 0.7 %; EOSINOPHILS # (AUTO) 0.4 10^3/uL (0.0-0.7); EOSINOPHILS % (AUTO) 2.5 %; HCT - HEMATOCRIT 50.3 % (42.0-52.0); HGB - HEMOGLOBIN 16.9 g/dL (14.0-18.0); LYMPHOCYTES # (AUTO) 3.6 10^3/uL (1.5-3.5); LYMPHOCYTES % (AUTO) 25.9 %; MEAN CORPUSCULAR HEMOGLOBIN 31.9 pg (27.0-31.0); MEAN CORPUSCULAR HGB CONC 33.6 g/dL (32.0-36.0); MEAN CORPUSCULAR VOLUME 95.1 fL (80.0-94.0); MEAN PLATELET VOLUME 11.2 fL (7.4-11.4); MONOCYTES # (AUTO) 1.1 10^3/uL (0.0-1.0); NEUTROPHILS # (AUTO) 8.7 10^3/uL (1.5-6.6); NEUTROPHILS % (AUTO) 62.3 %; PLT - PLATELET COUNT 249 10^3/uL (130-450); RED BLOOD COUNT 5.29 10^6/uL (4.70-6.10); RED CELL DISTRIBUTION WIDTH 13.2 % (12.0-15.0)
[2024-01-05 20:48] LABS: ALBUMIN 4.5 g/dL (3.2-5.5); ALBUMIN/GLOBULIN RATIO 1.5 (1.0-2.2); BILIRUBIN,TOTAL 0.8 mg/dL (0.2-1.0); CALCIUM 10.3 mg/dL (8.5-10.3); POTASSIUM 4.1 mmol/L (3.5-4.5); TOTAL PROTEIN 7.5 g/dL (6.4-8.9)
== END 2024-01-05 23:59 | disposition home or self-care (01) ==
LOC: LAB.N 08:00
PROVIDERS: ATTEND Physician Assistant Medical
DX: M54.50 Low back pain, unspecified (principal)
CPT/HCPCS: 36415; 80053; 82150; 83690; 85025

== ENCOUNTER 2024-01-13 09:48 | Outpatient (CLI) | payer MEDICAID ==
[2024-01-13] MEDS ORDERED: DIATRIZOATE MEGLU/DIATRIZO SOD 30 ML BOTTLE PO ONE (09:52)
[2024-01-13] MEDS ORDERED: iohexoL-300 100 ML VIAL ONE (09:52)
[2024-01-13] MEDS: DIATRIZOATE MEGLU/DIATRIZO SOD 30 ML BOTTLE PO ONE (14:03)
[2024-01-13] MEDS: iohexoL-300 100 ML VIAL IVP ONE (14:03)
--- NOTE | 2024-01-13 15:42 | CT Report ---
PROCEDURE: Abdomen/Pelvis W INDICATIONS: LOW BACK PAIN CONTRAST: Nonionic iodinated intravenous contrast, oral contrast also was utilized. TECHNIQUE: After the administration of intravenous contrast, a CT scan of the abdomen and pelvis was performed. Images were recorded and evaluated at appropriate window settings. Reformats: coronal and sagittal. F or radiation dose reduction, the following was used: automated exposure control, adjustment of mA and /or kV according to patient size. COMPARISON: Similar comparison CT 01/24/2021. FINDINGS: Image quality: Diagnostic. Lower chest: Unremarkable. Minimal pulmonary scarring within the lingular segment left upper lobe. 2 small foci of right lateral costophrenic sulcus lung scarring are again seen. Liver: No solid mass. Gallbladder and biliary tree: Normal. Spleen: No splenomegaly. Pancreas: No pancreatic ductal dilation. Adrenals: No adrenal nodule. Kidneys and ureters: No hydronephrosis. No renal cystic lesion which requires follow up. No solid mas s. Stomach, bowel and peritoneum: No bowel distension. No pathologic free fluid. Lymph nodes: No central or retroperitoneal adenopathy. Vessels: No infrarenal aortic aneurysm. PELVIS Reproductive organs: Unremarkable. Bladder: No abnormal wall thickening, accounting for underdistention. Pelvic lymph nodes: No pelvic adenopathy by size criteria. Bones: No aggressive osseous abnormality. Other: No significant ventral or inguinal hernia. Normal appendix found right lower quadrant. IMPRESSION: No acute disease. Minimal lung scarring in each lower lobe. Normal appendix found. Mild degenerative disc disease is seen along the lumbosacral spine without definite spinal or foraminal stenosis and al so without evidence of compression fracture. Reviewed by: Reno Avendaño MD on 01/13/2024 3:40 PM PST Approved by: Reno Avendaño MD on 01/13/2024 3:40 PM PST Station ID: [id number]
== END 2024-01-13 09:49 | disposition home or self-care (01) ==
LOC: DI 09:48
PROVIDERS: ATTEND Physician Assistant Medical
DX: M47.816 Spondylosis without myelopathy or radiculopathy, lumbar region (principal); J98.4 Other disorders of lung
CPT/HCPCS: 74177; Q9963; Q9967

== ENCOUNTER 2024-01-25 11:52 | Outpatient (CLI) | payer MEDICAID ==
[2024-01-25 17:56] LABS: ALBUMIN 4.4 g/dL (3.2-5.5); ALBUMIN/GLOBULIN RATIO 1.5 (1.0-2.2); ALKALINE PHOSPHATASE 86 IU/L (42-121); ALT ALANINE AMINOTRANSFERASE 11 IU/L (10-60); AST ASPARTATE AMINOTRANSFERASE 10 IU/L (10-42); BILIRUBIN,TOTAL 0.6 mg/dL (0.2-1.0); BUN - BLOOD UREA NITROGEN 14 mg/dL (6-20); CARBON DIOXIDE - CO2 28 mmol/L (21-32); CHLORIDE 106 mmol/L (101-111); CHOL/HDL RATIO 6.2 (<5.0); CHOLESTEROL 228 mg/dL; CREATININE 0.9 mg/dL (0.6-1.3); GFR - MDRD 85 (>89); GLUCOSE 144 mg/dL (74-104); HDL CHOLESTEROL 37 mg/dL; LDL CHOLESTEROL,CALCULATED 118 mg/dL; LDL/HDL RATIO 3.2 (<3.6); POTASSIUM 4.3 mmol/L (3.5-4.5); SODIUM 139 mmol/L (135-145); TOTAL PROTEIN 7.3 g/dL (6.4-8.9); TRIGLYCERIDES 365 mg/dL (48-352); VLDL CHOLESTEROL 73 mg/dL
[2024-01-25 20:33] LABS: ESTIMATED AVERAGE GLUCOSE 169 mg/dL (70-100); HEMOGLOBIN A1c% 7.5 % (4.27-6.07)
== END 2024-01-25 11:53 | disposition home or self-care (01) ==
LOC: LAB.N 11:52
PROVIDERS: ATTEND Internal Medicine
DX: E11.42 Type 2 diabetes mellitus with diabetic polyneuropathy (principal); E78.5 Hyperlipidemia, unspecified; L40.50 Arthropathic psoriasis, unspecified; Z79.891 Long term (current) use of opiate analgesic
CPT/HCPCS: 36415; 80053; 80061; 81599; 83036; 83721

== ENCOUNTER 2024-01-25 11:59 | Outpatient (CLI) | payer MEDICAID ==
--- NOTE | 2024-01-25 13:01 | XRAY Report ---
PROCEDURE: Lumbar Spine 2-3V INDICATIONS: BACK PAIN, LOW TECHNIQUE: 3 views of the lumbar spine were acquired. COMPARISON: CT 01/23/2024 FINDINGS: Bones: 5 [id number] vertebrae are present. There is normal bony alignment. No vertebral body compression fractures. Vertebral body height loss at T12. No suspicious bony lesions. Mild disc hei ght loss at all levels. Facet arthrosis of L5-S1. Bone island of L5. Soft tissues: Overlying bowel gas pattern is normal. No suspicious soft tissue calcifications. IMPRESSION: Mild multilevel degenerative disc disease and lumbosacral facet arthrosis. Reviewed by: Adán Talamantes MD on 01/25/2024 12:59 PM PDT Approved by: Adán Talamantes MD on 01/25/2024 12:59 PM PDT Station ID: [id number]
--- NOTE | 2024-01-25 13:01 | XRAY Report ---
PROCEDURE: Shoulder 2+V BL INDICATIONS: PSORIATIC ARTHRITIS TECHNIQUE: 3 views of the shoulder were acquired. COMPARISON: None. FINDINGS: Bones: No fractures or dislocations. No suspicious bony lesions. Visualized ribs appear intact. Acromioclavicular joint space narrowing with osteophytosis. Soft tissues: No suspicious soft tissue calcifications. The visualized lungs are within normal limi ts. IMPRESSION: No acute bony abnormality. Mild acromioclavicular osteoarthritis. Reviewed by: Adán Talamantes MD on 01/25/2024 1:00 PM PDT Approved by: Adán Talamantes MD on 01/25/2024 1:00 PM PDT Station ID: [id number]
== END 2024-01-25 12:00 | disposition home or self-care (01) ==
LOC: DI.N 11:59
PROVIDERS: ATTEND Physician Assistant Medical
DX: L40.50 Arthropathic psoriasis, unspecified (principal); M19.012 Primary osteoarthritis, left shoulder; M19.011 Primary osteoarthritis, right shoulder; M51.36 Other intervertebral disc degeneration, lumbar region; M47.817 Spondylosis without myelopathy or radiculopathy, lumbosacral region; E11.42 Type 2 diabetes mellitus with diabetic polyneuropathy; E78.5 Hyperlipidemia, unspecified; Z79.891 Long term (current) use of opiate analgesic
CPT/HCPCS: 36415; 80053; 80061; 81599; 83036; 83721

== ENCOUNTER 2024-02-27 12:20 | Outpatient (CLI) | payer MEDICAID | END 2024-02-27 23:59 | disposition critical access hospital (66) | LOC: EMS 12:20 | DX: R11.0 Nausea (principal); R10.9 Unspecified abdominal pain | CPT/HCPCS: A0425; A0427; A0999 ==

== ENCOUNTER 2024-03-05 06:33 | Day surgery (SDC) | payer MEDICAID ==
[~2024-03-05 06:33] MED LIST: ceFAZolin 2 GM VIAL ONE
[2024-03-05] MEDS: LACTATED RINGERS 1,000 ML IV ONE ×2 (06:34→08:12)
[2024-03-05] MEDS ORDERED: LIDOCAINE 2% URO-JET 5 ML SYRINGE UR ONE (07:07)
[2024-03-05] MEDS ORDERED: PROPOFOL 200 MG/20 ML VIAL IVP ONE (07:10)
[2024-03-05] MEDS ORDERED: ROCURONIUM 50 MG/5 ML VIAL ONE (07:10)
[2024-03-05] MEDS ORDERED: LIDOCAINE-PF 2% 10 ML AMP SUBQ ONE (07:10)
[2024-03-05] MEDS ORDERED: fentaNYL 100 MCG/2 ML VIAL ONE (07:12)
[2024-03-05] MEDS ORDERED: MIDAZOLAM 2 MG/2 ML VIAL ONE (07:12)
[2024-03-05] MEDS ORDERED: SEVOFLURANE 250 ML LIQUID INH ONE (07:15)
--- NOTE | 2024-03-05 07:20 | ANESTHESIA ---
Pre-Anesthesia VS, & Labs - Diagnosis kidney stone - Procedure ureteroscopy, laser lithotripsy, cysto stent, left Vital Signs: Temp Pulse Resp BP Pulse Ox O2 Flow Rate 36 C L 87 16 154/82 H 97 03/05/24 06:42 03/05/24 06:42 03/05/24 06:42 03/05/24 06:42 03/05/24 06:42 Height: 5 ft 4 in Weight (kg): 77.7 kg Body Mass Index: 29.4 BMI Classification: Overweight - NPO >8 hours - Lab Results Current Lab Results: Laboratory Tests 03/05/24 07:09: POC Whole Bld Glucose 73 Home Medications and Allergies Insulin Lispro [Humalog Kwikpen U-100] 9 units SUBQ TIDWM 09/09/16 Methotrexate [Methotrexate Sodium] 10 mg PO Q7D 09/09/16 Albuterol Sulfate [Proair Hfa Inhaler] 1 - 2 puffs INH Q4H PRN 01/28/21 Clotrimazole/Betamethasone Crm [Lotrisone Cream] 1 applic TOP BID PRN 01/28/21 Crisaborole [Eucrisa] 1 applic TP BID 01/28/21 Famotidine [Pepcid] 20 mg PO BID 01/28/21 Fluocinonide 0.05% Cream [Lidex 0.05% Cream] 1 applic TOP BID PRN 01/28/21 Fluticasone [Flonase] 1 sprays SARA BID 01/28/21 Folic Acid 1 mg PO DAILY 01/28/21 Insulin Degludec [Tresiba Flextouch U-200] 90 unit SUBQ DAILY 01/28/21 Metoprolol Succinate [Toprol Xl] 25 mg PO BID 01/28/21 Nitroglycerin [Nitrostat] 0.4 mg SL Q5MIN PRN 01/28/21 Oxycodone HCl 10 mg PO TID PRN 01/28/21 Promethazine [Phenergan] 25 mg PO TID PRN 01/28/21 Guselkumab [Tremfya] 100 mg SQ ONCE 03/02/21 Dulaglutide [Trulicity] 3 mg SQ Q7D 01/03/24 Liraglutide [Victoza 2-Ton] 1.8 mg SUBQ DAILY 01/03/24 Allergies/Adverse Reactions: Allergies Allergy/AdvReac Type Severity Reaction Status Date / Time ixekizumab Allergy muscle Verified 02/27/24 12:48 [From Taltz Autoinjector] swelling diphenhydramine AdvReac Anxiety, Verified 02/27/24 12:48 [From Benadryl] twitching Anes History & Medical History - Anesthetic History Anesthesia Complications: reports: No previous complications - Medical History Cardiovascular: reports: Hypertension, High cholesterol, [place] Pulmonary: reports: COPD Gastrointestinal: reports: GERD, Other Urinary: reports: Benign prostate hypertrophy Neuro: reports: Peripheral neuropathy, Tremors Musculoskeletal: reports: Osteoarthritis, Fibromyalgia, Chronic back pain Endocrine/Autoimmune: reports: Type 2 diabetes, Other Skin: reports: Psoriasis Smoking Status: Current every day smoker - Surgical History General: reports: Colonoscopy, Other Cardiothoracic: reports: Coronary stent Orthopedic: reports: Other Exam General: Alert, Oriented x3, Cooperative Dental: Dentures full Upper, Dentures full Lower Mouth Opening: Greater than 4 Fingerbreadths Neck Mobility: Normal Mallampati classification: II Thyromental Distance: less than 4 cm Respiratory: Lungs clear Cardiovascular: Regular rate Plan Anesthesia Type: General Consent for Procedure(s) Verified and Reviewed: Yes Code Status: Attempt Resuscitation ASA classification: 3-Severe systemic disease Is this case an emergency?: No
[2024-03-05] MEDS ORDERED: METOCLOPRAMIDE 10 MG/2 ML VIAL IVP PRN (07:21)
[2024-03-05] MEDS ORDERED: ONDANSETRON 4 MG/2 ML VIAL IVP PRN ×2 (07:21→08:10)
[2024-03-05] MEDS ORDERED: HYDROmorphone 0.5 MG/0.5 ML SYRINGE IVP PRN (07:21)
[2024-03-05] MEDS ORDERED: fentaNYL 100 MCG/2 ML VIAL IVP PRN (07:21)
[2024-03-05] MEDS ORDERED: NALOXONE 0.4 MG/ML VIAL IVP PRN (07:21)
[2024-03-05] MEDS ORDERED: MORPHINE 2 MG/ML CARPUJECT IVP PRN (07:21)
[2024-03-05] MEDS ORDERED: ePHEDrine 50 MG/ML VIAL IVP PRN (07:21)
[2024-03-05] MEDS ORDERED: ATROPINE ABBOJECT 1 MG/10 ML SYRINGE IVP PRN (07:21)
[2024-03-05] MEDS: LIDOCAINE 2% URO-JET 5 ML SYRINGE UR ONE (07:46)
[2024-03-05] MEDS ORDERED: SUGAMMADEX 200 MG/2 ML VIAL IVP ONE (07:57)
[2024-03-05] MEDS ORDERED: KETOROLAC 30 MG/ML VIAL ONE (07:57)
[2024-03-05] MEDS ORDERED: ePHEDrine 50 MG/ML VIAL IVP ONE (07:57)
[2024-03-05] MEDS ORDERED: LACTATED RINGERS 1,000 ML IV SCH (08:00)
[2024-03-05] MEDS ORDERED: HYDROcod/ACETAM 5/325 MG TABLET PO PRN (08:10)
--- NOTE | 2024-03-05 08:42 | ANESTHESIA POST OP EVALUATION ---
Anesthesia Post Eval - Post Anesthesia Eval Vitals: Last Vital Signs Temp 36.6 C 03/05/24 08:34 Pulse 80 03/05/24 08:34 Resp 15 03/05/24 08:34 BP 131/74 H 03/05/24 08:34 Pulse Ox 94 03/05/24 08:34 O2 Flow Rate CV Function Including HR & BP: Stable Pain Control: Satisfactory Nausea & Vomiting: Negative Mental Status: Baseline Respiratory Status: Airway Patent Hydration Status: Satisfactory Anesthesia Complications: None
[2024-03-05 09:10] VITALS: BP 138/72; O2SAT 97
--- NOTE | 2024-03-05 09:11 | Discharge Plan ---
Discharge Plan Problem Reviewed?: Yes Disposition: Home, Self Care Condition: Good Prescriptions: Docusate Sodium 100Mg Capsule [Colace 100Mg Capsule] 100 mg PO DAILY #7 cap oxyCODONE [Roxicodone] 5 mg PO Q4H PRN #10 tablet PRN Reason: Pain Diet: Regular Activity Restrictions: Additional Comments (as instructed) Shower Restrictions: No Driving Restrictions: No Instruction Topics: Stents Ureteral Additional Instructions or Follow Up instructions: Remove stent as instructed on TuesdayMarch 09 No Smoking: If you smoke, Please STOP! Call for help.
--- NOTE | 2024-03-05 09:15 | OPERATIVE REPORT ---
Operative Report - General Procedure Date: 03/05/24 Planned Procedure: Cystoscopy, left ureteroscopy, laser lithotripsy, stent Pre-Op Diagnosis: Left ureteral stone Procedure Performed: Cystoscopy, left ureteroscopy, laser lithotripsy, stent Post Op Diagnosis: Left ureteral stone - Procedure Note Primary Surgeon: Alec Anesthesia Provider: ZHANG Quintana Anesthesia Technique: General LMA Pathology: none Findings: Left distal radioopaque 7mm stone dusted Complications: none - Other Other Information/Narrative: After informed consent was obtained the patient was brought to the OR and laid in the supine position. The patient was anesthetized per anesthesia protocols and prepped and draped in usual sterile fashion in the dorsolithotomy position. A formal timeout was performed reconfirming the patient, procedure and laterality. Fluoroscopy confirmed a left ureteral stone which had migrated distally and was in the distal ureter now. A 22 [place] cystoscope was advanced easily into the urinary bladder. Bladder was inspected and full and there were no masses, lesions or other concerns. A sensor wire was used to cannulate the left ureteral orifice. There was immediate efflux of merary urine. It did not appear purulent. The wire was placed up to the kidney under fluoroscopic guidance. A short semirigid ureteroscope was then advanced into the distal ureter and a 7 mm radiopaque stone which was dark brown/green was seen about 3 cm proximal to the UVJ. Using a 200 m laser fiber at a power of 0.8 and a rate of 8 we dusted the stone into tiny fragments. There were no more radiopacity seen on fluoroscopy. A 6 [place] 26 cm double-J stent was placed good curling on the kidney and good curling noted in the bladder. The bladder was emptied, the stent was left on a string and taped to the penis. A Uro-Jet was placed. This concluded the procedure and the patient tolerated the procedure well. He was brought to the PACU without further incident. He will follow-up in 6 months time. He will remove his stent in 4 days time.
--- NOTE | 2024-03-06 00:06 | XRAY Report ---
PROCEDURE: OR C-Arm Procedure INDICATIONS: LASER; CYSTOSCOPY; STENT PLACEMENT TECHNIQUE: Intraoperative fluoroscopic guidance was provided and low-resolution fluoroscopic spot alyx ms were obtained. COMPARISON: None. FINDINGS: Low-resolution intraoperative spot films show sequential placement of a left ureteral stent IMPRESSION: Fluoroscopic guidance. Reviewed by: Tho Glez MD on 03/05/2024 11:04 PM ZENOBIA Approved by: Tho Glez MD on 03/05/2024 11:04 PM AKDT Station ID: [id number]
== END 2024-03-05 06:34 | disposition home or self-care (01) ==
LOC: SDS 06:33
PROVIDERS: ATTEND Urology
DX: N20.1 Calculus of ureter (principal); I10 Essential (primary) hypertension; E78.00 Pure hypercholesterolemia, unspecified; E11.9 Type 2 diabetes mellitus without complications; J44.9 Chronic obstructive pulmonary disease, unspecified; Z79.4 Long term (current) use of insulin; Z79.85 Long-term (current) use of injectable non-insulin antidiabetic drugs; F17.210 Nicotine dependence, cigarettes, uncomplicated; N40.0 Benign prostatic hyperplasia without lower urinary tract symptoms
CPT/HCPCS: 52356; C1758; C2617; J3490; J7120

== ENCOUNTER 2024-06-08 08:54 | Outpatient (CLI) | payer MEDICAID ==
[2024-06-08 12:15] LABS: ALBUMIN 4.4 g/dL (3.2-5.5); ALBUMIN/GLOBULIN RATIO 1.6 (1.0-2.2); ALKALINE PHOSPHATASE 89 IU/L (42-121); ALT ALANINE AMINOTRANSFERASE 7 IU/L (10-60); AST ASPARTATE AMINOTRANSFERASE 9 IU/L (10-42); BILIRUBIN,TOTAL 0.7 mg/dL (0.2-1.0); BUN - BLOOD UREA NITROGEN 12 mg/dL (6-20); CARBON DIOXIDE - CO2 26 mmol/L (21-32); CHLORIDE 107 mmol/L (101-111); CHOL/HDL RATIO 6.7 (<5.0); CHOLESTEROL 248 mg/dL; CREATININE 0.9 mg/dL (0.6-1.3); GFR - MDRD 85 (>89); GLUCOSE 82 mg/dL (74-104); HDL CHOLESTEROL 37 mg/dL; LDL CHOLESTEROL,CALCULATED 174 mg/dL; LDL/HDL RATIO 4.7 (<3.6); POTASSIUM 4.3 mmol/L (3.5-4.5); SODIUM 138 mmol/L (135-145); TOTAL PROTEIN 7.2 g/dL (6.4-8.9); TRIGLYCERIDES 184 mg/dL; VLDL CHOLESTEROL 37 mg/dL
[2024-06-08 12:19] LABS: CREATININE,URINE 148.9 mg/dL; MICROALBUM/CREATININE RATIO,UR 9.4 ug/mg (<30.0); MICROALBUMIN,URINE 1.4 mg/dL
[2024-06-08 12:33] LABS: ESTIMATED AVERAGE GLUCOSE 120 mg/dL (70-100); HEMOGLOBIN A1c% 5.8 % (4.27-6.07)
[2024-06-08 12:57] LABS: BASOPHILS # (AUTO) 0.1 10^3/uL (0.0-0.1); BASOPHILS % (AUTO) 0.6 %; EOSINOPHILS # (AUTO) 0.3 10^3/uL (0.0-0.7); EOSINOPHILS % (AUTO) 2.8 %; HCT - HEMATOCRIT 48.8 % (42.0-52.0); HGB - HEMOGLOBIN 16.1 g/dL (14.0-18.0); LYMPHOCYTES # (AUTO) 2.8 10^3/uL (1.5-3.5); LYMPHOCYTES % (AUTO) 23.5 %; MEAN CORPUSCULAR HEMOGLOBIN 31.9 pg (27.0-31.0); MEAN CORPUSCULAR VOLUME 96.6 fL (80.0-94.0); MEAN PLATELET VOLUME 11.1 fL (7.4-11.4); MONOCYTES # (AUTO) 1.1 10^3/uL (0.0-1.0); MONOCYTES % (AUTO) 9.1 %; NEUTROPHILS # (AUTO) 7.6 10^3/uL (1.5-6.6); NEUTROPHILS % (AUTO) 63.7 %; PLT - PLATELET COUNT 226 10^3/uL (130-450); RED BLOOD COUNT 5.05 10^6/uL (4.70-6.10); RED CELL DISTRIBUTION WIDTH 14.1 % (12.0-15.0)
== END 2024-06-08 08:55 | disposition home or self-care (01) ==
LOC: LAB.N 08:54
PROVIDERS: ATTEND Internal Medicine
DX: E78.5 Hyperlipidemia, unspecified (principal); L40.50 Arthropathic psoriasis, unspecified; N40.0 Benign prostatic hyperplasia without lower urinary tract symptoms; E11.42 Type 2 diabetes mellitus with diabetic polyneuropathy
CPT/HCPCS: 36415; 80053; 80061; 81599; 82043; 82570; 83036; 83721; 84153; 85025